=== PATIENT | female | born 1975 | race Caucasian/White ===

== ENCOUNTER 2017-02-20 05:12 | Inpatient (IN) | payer BC ==
[~2017-02-20] VITALS: Ht 177.8 cm; Wt 100.0 kg
[2017-02-20 05:10] VITALS: BP 124/69
[2017-02-20] MEDS: D5%-LACTATED RINGERS 1,000 ML IV SCH ×3 (05:15→21:15)
[2017-02-20] MEDS ORDERED: OXYTOCIN 30U/ 0.9% NaCL 500ML 500 ML IV ONE (05:15)
[2017-02-20] MEDS ORDERED: FENTANYL PF 100 MCG/2ML IV PRN (05:30)
[2017-02-20] MEDS ORDERED: FENTANYL PF 100 MCG/2ML IVPush PRN (05:30)
[2017-02-20] MEDS ORDERED: ONDANSETRON 2MG/ML, 2ML IVPush PRN (05:30)
[2017-02-20] MEDS ORDERED: MISOPROSTOL 200 MCG TABLET ONE (05:37)
[2017-02-20] MEDS ORDERED: OXYTOCIN 30U/ 0.9% NaCL 500ML 500 ML ONE ×2 (05:37→20:08)
[2017-02-20] MEDS ORDERED: LIDOCAINE 1%, 20ML ONE (05:37)
[2017-02-20 05:40] LABS: HEMATOCRIT 39.7 % (34.6-47.8); HEMOGLOBIN 13.3 g/dL (11.7-16.4); WHITE BLOOD COUNT 7.9 x10^3/uL (3.4-10)
[2017-02-20] MEDS: LACTATED RINGERS 1,000 ML IV SCH ×5 (05:40→21:15)
[2017-02-20] MEDS ORDERED: BUPIVACAINE/PF 0.25% ONE (09:53)
[2017-02-20] MEDS ORDERED: FENTANYL/BUPIV./NS/PF 250 ML EPIDCONT ONE (09:53)
[2017-02-20] MEDS ORDERED: FENTANYL/BUPIV./NS/PF 250 ML EPIDCONT SCH (09:55)
[2017-02-20] MEDS ORDERED: LACTATED RINGERS 1,000 ML IVBOLUS PRN (10:00)
[2017-02-20] MEDS ORDERED: EPHEDRINE 50 MG/ML, 1ML IVPush PRN (10:00)
[2017-02-20] MEDS ORDERED: NALOXONE 0.4 MG/ML, 1ML IVPush PRN (10:00)
[2017-02-20] MEDS ORDERED: FENTANYL PF 100 MCG/2ML ONE (19:11)
[2017-02-20] MEDS ORDERED: OXYcodone/APAP 5/325MG TABLET PO PRN (20:00)
[2017-02-20] MEDS ORDERED: MISOPROSTOL 200 MCG TABLET PR PRN (20:00)
[2017-02-20] MEDS ORDERED: ONDANSETRON 2MG/ML, 2ML IV PRN (20:00)
[2017-02-20] MEDS ORDERED: MEASLES,MUMPS&RUBELLA VACC/PF 0.5 ML SQ-VACC PRN (20:00)
[2017-02-20] MEDS ORDERED: METHYLERGONOVINE 0.2 MG/ML IM PRN (20:00)
[2017-02-20] MEDS ORDERED: ACETAMINOPHEN 325 MG TABLET PO PRN ×2 (20:00)
[2017-02-20] MEDS ORDERED: CARBOPROST TROMETHAMINE 250 MCG/ML, 1ML IM PRN (20:00)
[2017-02-20] MEDS ORDERED: DIPH,PERTUSS(ACELL),TET VAC/PF NC IM-VACC PRN (20:00)
[2017-02-20] MEDS: OXYTOCIN 30U/ 0.9% NaCL 500ML 500 ML IV SCH (20:14)
[2017-02-20 21:35] VITALS: BP 122/75
[2017-02-20] MEDS: DOCUSATE 100 MG CAPSULE PO PRN (23:17)
[2017-02-20] MEDS: IBUPROFEN 600 MG TABLET PO PRN (23:18)
[2017-02-20] MEDS: OXYcodone/APAP 5/325MG TABLET PO PRN (23:18)
[2017-02-21 02:47] LABS: HEMOGLOBIN 12.2 g/dL (11.7-16.4)
[2017-02-21 04:49] VITALS: BP 116/69
[2017-02-21] MEDS: OXYcodone/APAP 5/325MG TABLET PO PRN (04:55)
[2017-02-21] MEDS: IBUPROFEN 600 MG TABLET PO PRN ×2 (04:55→17:34)
[2017-02-21] MEDS: OXYTOCIN 30U/ 0.9% NaCL 500ML 500 ML IV SCH ×2 (05:35→15:35)
[2017-02-21 07:30] VITALS: BP 115/70
[2017-02-21] MEDS: DOCUSATE 100 MG CAPSULE PO PRN (08:17)
[2017-02-21] MEDS ORDERED: PRENATAL VIT/IRON/FA 1 EACH TABLET PO SCH (09:00)
[2017-02-21] MEDS ORDERED: OXYC-302 PO (13:22)
== END 2017-02-21 20:00 | disposition home or self-care (01) | DRG 775 ==
LOC: LDIP 05:12 → 2NW 21:10
PROVIDERS: ADMIT Obstetrics & Gynecology Maternal & Fetal Medicine; ATTEND Obstetrics & Gynecology Maternal & Fetal Medicine
PROC: 10E0XZZ Delivery of Products of Conception, External Approach (ICD-10-PCS; principal; 2017-02-21)
PROC: 0KQM0ZZ Repair Perineum Muscle, Open Approach (ICD-10-PCS; 2017-02-21)
PROC: 3E0S3CZ (ICD-10-PCS; 2017-02-21)
PROC: 00HU33Z Insertion of Infusion Device into Spinal Canal, Percutaneous Approach (ICD-10-PCS; 2017-02-21)
DX: O70.1 Second degree perineal laceration during delivery (principal); Z37.0 Single live birth; Z3A.38 38 weeks gestation of pregnancy
CPT/HCPCS: 36415; 85025; 86850; 86900; J3010; J3490; J2590; J7120

== ENCOUNTER → 2017-04-06 | Outpatient (CLI) | payer BC ==
[~2017-04-06] MED LIST: CYAN1TAB29 PO; OXYC-302 PO; PREN1TAB10 PO
[2017-04-06 12:48] LABS: HEMATOCRIT 45.2 % (34.6-47.8); HEMOGLOBIN 15.1 g/dL (11.7-16.4); WHITE BLOOD COUNT 5.4 x10^3/uL (3.4-10)
== END | disposition home or self-care (01) ==
LOC: STAR 11:49
PROVIDERS: ATTEND Obstetrics & Gynecology Maternal & Fetal Medicine
DX: Z30.2 Encounter for sterilization (principal)
CPT/HCPCS: 36415; 81003; 84703; 85025

== ENCOUNTER 2017-04-13 06:05 | Day surgery (SDC) | payer BC, OTHER ==
[~2017-04-13] VITALS: Ht 177.8 cm; Wt 88.6 kg
[2017-04-13 06:45] VITALS: BP 112/73
[2017-04-13] MEDS ORDERED: FENTANYL PF 100 MCG/2ML ONE ×2 (06:49→09:17)
[2017-04-13] MEDS ORDERED: MIDAZOLAM 1 MG/ML, 2ML ONE (06:50)
[2017-04-13] MEDS ORDERED: HYDROmorphone 1 MG/ML, 1ML ONE (06:50)
[2017-04-13] MEDS ORDERED: DEXAMETHASONE 4 MG/ML, 1ML ONE ×2 (06:51→07:48)
[2017-04-13] MEDS ORDERED: ONDANSETRON 2MG/ML, 2ML ONE (06:51)
[2017-04-13] MEDS ORDERED: CEFAZOLIN 1,000 MG ONE (06:51)
[2017-04-13] MEDS ORDERED: SUCCINYLCHOLINE 20 MG/ML, 10ML ONE (06:51)
[2017-04-13] MEDS ORDERED: ROCURONIUM 10 MG/ML ONE (06:51)
[2017-04-13] MEDS ORDERED: PROPOFOL 10 MG/ML, 20ML ONE (06:51)
[2017-04-13] MEDS ORDERED: EPINEPHRINE 1 MG/ML, 1ML ONE (06:54)
[2017-04-13] MEDS ORDERED: BUPIVACAINE/PF 0.25% ONE (06:54)
[2017-04-13 06:59] LABS: HCG UR LOT HCG7030192
[2017-04-13] MEDS ORDERED: LACTATED RINGERS 1,000 ML IV SCH (07:07)
[2017-04-13] MEDS ORDERED: NEOSPORIN OINT, 15GM ONE (07:12)
[2017-04-13 07:33] LABS: HCG UR OBC PASS
[2017-04-13] MEDS ORDERED: NEOSTIGMINE 1 MG/ML, 10ML ONE ×2 (07:35→08:18)
[2017-04-13] MEDS ORDERED: KETOROLAC 30 MG/1 ML ONE (07:35)
[2017-04-13] MEDS ORDERED: HYDROcodone/APAP 7.5-325MG/15ML UDC PO PRN (08:00)
[2017-04-13] MEDS ORDERED: HYDROmorphone 1 MG/ML, 1ML IV PRN (08:00)
[2017-04-13] MEDS ORDERED: OXYcodone 5 MG/5 ML ORAL.SOL UDC PO PRN (08:00)
[2017-04-13] MEDS ORDERED: PROMETHAZINE 25 MG/ML, 1ML IV PRN (08:00)
[2017-04-13] MEDS ORDERED: ONDANSETRON 2MG/ML, 2ML IVPush PRN (08:00)
[2017-04-13] MEDS ORDERED: GLYCOPYRROLATE 0.2MG/1ML, 5ML ONE (08:18)
[2017-04-13] MEDS ORDERED: LIDOCAINE-MPF 2% ,5ML ONE (08:30)
[2017-04-13] MEDS ORDERED: OXYcodone 5 MG/5 ML ORAL.SOL UDC ONE (09:18)
[2017-04-13] MEDS: FENTANYL PF 100 MCG/2ML IV PRN ×2 (09:21→09:30)
[2017-04-13] MEDS ORDERED: OXYcodone/APAP 5/325MG TABLET PO PRN (13:30)
== END 2017-04-13 13:50 ==
LOC: OUT 06:05
PROVIDERS: ATTEND Obstetrics & Gynecology Maternal & Fetal Medicine
DX: Z30.2 Encounter for sterilization (principal)
CPT/HCPCS: 58670; 81025; 88302; J0171; J0330; J0690; J1100; J1170; J1885; J2250; J2405; J2704; J2710; J3010; J3490; J7120